=== PATIENT | female | born 1990 | race African-American/Black ===

== ENCOUNTER 2018-09-06 06:11 | Inpatient (IN) ==
[2018-09-06] MEDS ORDERED: BUTORPHANOL 1 MG/ML VIAL IV PRN (06:22)
[2018-09-06] MEDS ORDERED: ONDANSETRON 4 MG/2 ML VIAL IV PRN (06:22)
[2018-09-06] MEDS ORDERED: MEPERIDINE 50 MG/1 ML VIAL IV PRN (06:22)
[2018-09-06] MEDS ORDERED: OXYTOCIN/LR 20 UNIT/1,000 ML BAG IV SCH (06:30)
[2018-09-06 07:00] LABS: Basophils % 0.3 % (0.0-0.8); Eosinophils # 0.1 10*3/uL (0.0-0.87); Eosinophils % 0.8 % (0.00-10.9); Hematocrit 29.6 VOL% (35.7-47.0); Hemoglobin 9.2 GM/DL (12.0-16.0); Immature Granulocytes % 1.4 %; Immature Granulocytes Absolute 0.11 #; Lymphocytes # 1.8 10*3/uL (1.4-4.0); Mean Corpuscular HGB Conc 31.1 GM/DL (32-36); Mean Corpuscular Hemoglobin 26 PG (27-34); Mean Corpuscular Volume 83.6 FL (87-102); Mean Platelet Volume 10.9 FL (9.6-12.0); Monocytes # 0.8 10*3/uL (0.11-0.8); Monocytes % 9.5 % (1.7-12.7); Neutrophils # 5.1 10*3/uL (1.4-7.4); Platelet Count 204 T/CUMM (130-400); Red Blood Count 3.54 MC/CUMM (3.8-5.5); White Blood Count 7.9 T/CUMM (4-12)
[2018-09-06] MEDS ORDERED: OXYTOCIN/LR 30 UNIT/1,000 ML BAG IV PRN (07:06)
[2018-09-06] MEDS ORDERED: PROMETHAZINE 25 MG/1 ML VIAL IM PRN (07:08)
[2018-09-06] MEDS ORDERED: NALOXONE 0.4 MG/ML VIAL IV PRN (07:08)
[2018-09-06] MEDS ORDERED: hydrOXYzine HCL 25 MG/1 ML VIAL IM PRN (07:08)
[2018-09-06] MEDS ORDERED: diphenhydrAMINE 50 MG/1 ML VIAL IV PRN ×2 (07:08)
[2018-09-06] MEDS ORDERED: ePHEDrine 50 MG/ML AMP IV PRN (07:08)
[2018-09-06] MEDS ORDERED: CITRIC ACID/SODIUM CITRATE 30 ML UDCUP PO PRN (07:09)
[2018-09-06] MEDS ORDERED: FAMOTIDINE 20 MG/2 ML VIAL IV PRN (07:09)
[2018-09-06] MEDS ORDERED: fentaNYL 2 MCG/ROPIV 0.2% EPID 100 ML EPIDURAL SCH (07:30)
[2018-09-06] MEDS: LACTATED RINGERS 1,000 ML IV SCH ×2 (07:32)
[2018-09-06 07:34] LABS: Albumin 2.9 G/DL (3.4-5.0); Bilirubin,Total 0.9 MG/DL (0.2-1.0); Calcium 8.7 MG/DL (8.5-10.1); Osmolality,Calculated 271.7 MOS/KG (273-304); Total Protein 6.9 G/DL (6.4-8.3)
[2018-09-06 09:46] LABS: Apearance,Urine CLEAR (Clear); Bilirubin,Urine Negative (Negative); Blood, Urine Small mg/dL (Negative); Glucose,Urine (UA) Negative (Negative); Ketones,Urine Negative (Negative); Nitrite,Urine Negative (Negative); Protein,Urine Negative; Urine Color Colorless (Yellow); Urine Specific Gravity 1.003 (1.001-1.035); Urine Urobilinogen < 2.0 EU/DL (0.2-1.0)
[2018-09-06 09:58] LABS: RBC,Urine 0-1 /HPF (0-4)
[2018-09-06] MEDS ORDERED: LIDOCAINE 1% 50 ML VIAL ONE (11:33)
[2018-09-06] MEDS ORDERED: METHYLERGONOVINE 0.2 MG/1 ML AMP ONE (11:33)
[2018-09-06] MEDS ORDERED: miSOPROStol 200 MCG TABLET ONE (11:33)
[2018-09-06] MEDS ORDERED: miSOPROStol 200 MCG TABLET PO ONE (12:15)
[2018-09-06 12:45] LABS: Cord Arterial Blood HCO3 24.9 MMOL/L
[2018-09-06 12:46] LABS: Cord Venous Blood HCO3 22.3 MMOL/L; Cord Venous Blood PCO2 38.7 MMHG; Cord Venous Blood PO2 38.9
[2018-09-06] MEDS ORDERED: BENZOCAINE 20%/MENTHOL 0.5% SPRAY 56 GM CAN TOP PRN (15:37)
[2018-09-06] MEDS ORDERED: LANOLIN 50% CREAM 0.3 OZ TUBE TOP PRN (15:37)
[2018-09-06] MEDS ORDERED: RHO(D) IMMUNE GLOBULIN 300 MCG SYRINGE IM ONE (15:37)
[2018-09-06] MEDS ORDERED: ACETAMINOPHEN 325 MG TABLET PO PRN (15:37)
[2018-09-06] MEDS ORDERED: DIPH/TET/ACEL PERT BOOSTER VACCINE 0.5 ML VIAL IM ONE (15:37)
[2018-09-06] MEDS ORDERED: MEASLES/MUMPS/RUBELLA VACCINE 0.5 ML VIAL SUBCUT ONE (15:37)
[2018-09-06] MEDS ORDERED: oxyCODONE/ACETAMINOPHEN 5-325 MG TABLET PO PRN ×2 (15:37)
[2018-09-06] MEDS ORDERED: BISACODYL 10 MG SUPP RECTAL PRN (15:37)
[2018-09-06] MEDS ORDERED: ACETAMINOPHEN/CODEINE 300-30 MG TABLET PO PRN (15:37)
[2018-09-06] MEDS ORDERED: HYDROCORTISONE 2.5% RECTAL CREAM 30 GM TUBE TOP PRN (15:37)
[2018-09-06] MEDS ORDERED: IBUPROFEN 800 MG TABLET PO PRN ×2 (15:37→15:41)
[2018-09-06] MEDS ORDERED: WITCH HAZEL PADS 100/JAR TOP PRN (15:37)
[2018-09-06] MEDS: DOCUSATE SODIUM 100 MG CAPSULE PO SCH (20:46)
[2018-09-07 06:24] LABS: Basophils % 0.3 % (0.0-0.8); Eosinophils # 0.1 10*3/uL (0.0-0.87); Eosinophils % 0.7 % (0.00-10.9); Hematocrit 26.2 VOL% (35.7-47.0); Hemoglobin 8.3 GM/DL (12.0-16.0); Immature Granulocytes Absolute 0.12 #; Lymphocytes % 16.9 % (21.3-54.2); Mean Corpuscular HGB Conc 31.7 GM/DL (32-36); Mean Corpuscular Hemoglobin 26 PG (27-34); Mean Corpuscular Volume 81.9 FL (87-102); Monocytes # 1.2 10*3/uL (0.11-0.8); Monocytes % 10.3 % (1.7-12.7); Neutrophils # 8.3 10*3/uL (1.4-7.4); Neutrophils % 70.8 % (38.7-73.9); Platelet Count 179 T/CUMM (130-400); Red Cell Distribution Width 14.8 % (9.3-17.3); White Blood Count 11.8 T/CUMM (4-12)
[2018-09-07] MEDS: FERROUS SULFATE 325 MG TABLET PO SCH ×2 (10:30→21:54)
[2018-09-07] MEDS: DOCUSATE SODIUM 100 MG CAPSULE PO SCH ×2 (10:30→21:54)
[2018-09-08] MEDS: FERROUS SULFATE 325 MG TABLET PO SCH (08:54)
[2018-09-08] MEDS: DOCUSATE SODIUM 100 MG CAPSULE PO SCH (08:54)
[2018-09-08 11:58] VITALS: BP 114/75
== END 2018-09-08 12:20 | disposition home or self-care (01) | DRG 560 ==
LOC: N.LD 06:11 → N.OB 15:07
PROVIDERS: ADMIT Obstetrics & Gynecology; ATTEND Obstetrics & Gynecology